=== PATIENT | male | born 1955 | race Caucasian/White ===

== ENCOUNTER 2018-07-15 16:45 | Emergency (ER) | payer BC ==
[~2018-07-15] VITALS: Ht 188 cm; Wt 90.7 kg
[2018-07-15] MEDS ORDERED: KETOROLAC TROMETHAMINE 30 MG/ML VIAL IV STA (17:37)
[2018-07-15] MEDS ORDERED: SODIUM CHLORIDE 0.9% 1000ML 1,000 ML IV SCH (17:45)
[2018-07-15] MEDS ORDERED: DEXAMETHASONE SOD PHOS INJ 4 MG/ML VIAL IV ONE (17:45)
[2018-07-15] MEDS ORDERED: METOCLOPRAMIDE HCL 10 MG/2ML VIAL IV ONE (17:45)
[2018-07-15] MEDS ORDERED: DIPHENHYDRAMINE HCL INJ 50 MG/ML VIAL IV ONE (17:45)
--- NOTE | 2018-07-15 18:41 | Diagnostic Imaging Report ---
EXAMINATION: Head CT HISTORY: Headache COMPARISON: None. TECHNIQUE: Multidetector axial images were obtained without contrast from the foramen magnum to the vertex . The images were reconstructed using brain and bone algorithms. Thin section brain images were reformatted into coronal and sagittal planes. Image quality: Motion/streaking artifact limits the evaluation of the skull base and posterior cranial fossa. Dose modulation, iterative reconstruction, and/or weight based adjustment of the mA/kV was utilized to reduce the radiation dose to as low as reasonably achievable. FINDINGS: Parenchyma: 1. No abnormal densities. 2. No mass or hemorrhage. No CT evidence of acute territorial vascular insult. Extra-axial spaces:No abnormal density. No extra-axial fluid collections Brain volume: Normal for age. Ventricles: No hydrocephalus or displacement. Arteries: No density suggestive of thrombus. Dural sinuses: No abnormal density. Extra-axial spaces: No abnormal density. Foramen magnum: No mass, Chiari malformation, or basilar invagination. Sella: No obvious mass. Paranasal/mastoid sinuses: Imaged portions unremarkable. Skull/Scalp: No lytic or blastic lesions. No fractures. IMPRESSION: No intracranial abnormalities, particularly no mass, infarcts or hemorrhage. Signed by: Dr. Marilyn Royal M.D. on 07/15/2018 6:38 PM
[2018-07-15] MEDS ORDERED: ESGIC 50-325-41 EACH PO (20:04)
[2018-07-15 20:09] VITALS: BP 147/92
== END 2018-07-15 20:45 | disposition home or self-care (01) ==
LOC: ER 16:45 → EDSEX 16:45 → ER 20:45
DX: G44.89 Other headache syndrome (principal); R11.0 Nausea
CPT/HCPCS: 70450; 99284; J1100; J1200; J1885; J2765; J7030